=== PATIENT | male | born 1995 | race Caucasian/White ===

== ENCOUNTER 2020-06-18 15:10 | Emergency (ER) | payer MEDICAID ==
[~2020-06-18] VITALS: Ht 170.2 cm; Wt 79.4 kg
[2020-06-18 15:18] VITALS: Ht 170.2 cm; Wt 79.4 kg
[2020-06-18 16:54] VITALS: BP 118/69
== END 2020-06-18 16:54 | disposition home or self-care (01) ==
LOC: ED 15:10
DX: M54.5 Low back pain (principal)
CPT/HCPCS: Q0092